=== PATIENT | female | born 1980 | race Caucasian/White ===

== ENCOUNTER 2018-07-27 12:11 | Emergency (ER) | payer MEDICAID ==
[~2018-07-27] VITALS: Ht 167.6 cm; Wt 41.7 kg
[2018-07-27 12:23] VITALS: BP 110/74
[2018-07-27 12:43] LABS: APPEARANCE,URINE CLEAR (CLEAR); BILIRUBIN,URINE 1+ (NEGATIVE); BLOOD, URINE 3+ Ery/uL (NEGATIVE); COLOR,URINE YELLOW (YELLOW); KETONES,URINE TRACE (NEGATIVE); LEUKOCYTE ESTERASE ,URINE TRACE (NEGATIVE); NITRITE, URINE NEGATIVE (NEGATIVE); PH,URINE 6.5 (5.0-8.0); PROTEIN,URINE TRACE mg/dl (NEGATIVE); UGLUCOSE NEGATIVE (NEGATIVE); UROBILINOGEN,URINE 0.2 EU/dL (0.2)
[2018-07-27 12:48] LABS: BACTERIA,URINE Few /HPF (None Seen); RBC,URINE TOO NUMEROUS TO COUN /HPF (0-2); SQUAMOUS EPITHELIAL CELL,UR Few /HPF (None Seen)
[2018-07-27] MEDS ORDERED: ACETAMINOPHEN ES 500 MG TABLET ONE (12:53)
[2018-07-27] MEDS ORDERED: ACETAMINOPHEN 325 MG TABLET PO ONE (13:00)
== END 2018-07-27 13:18 | disposition home or self-care (01) ==
LOC: ER 12:13
DX: N39.0 Urinary tract infection, site not specified (principal); F41.9 Anxiety disorder, unspecified; F10.10 Alcohol abuse, uncomplicated; F17.200 Nicotine dependence, unspecified, uncomplicated; Y90.9 Presence of alcohol in blood, level not specified; Z98.890 Other specified postprocedural states
CPT/HCPCS: 81000-TC; 84703-TC; 87086-TC